=== PATIENT | male | born 1940 | race Caucasian/White ===

== ENCOUNTER → 2024-08-21 14:56 | Outpatient (REF) | payer MEDICARE, OTHER, SELFPAY | LOC: EMG 14:56 | PROVIDERS: ATTENDING PHYSICIAN Orthopaedic Surgery; FAMILY PHYSICIAN Family Medicine | DX: G56.02 Carpal tunnel syndrome, left upper limb (principal); R20.0 Anesthesia of skin | CPT/HCPCS: 95886; 95909 ==